=== PATIENT | female | born 1980 | race Caucasian/White ===

== ENCOUNTER → 2025-04-18 09:43 | Outpatient (REF) | payer BC, SELFPAY | LOC: PNTC 09:43 | PROVIDERS: ATTENDING PHYSICIAN Obstetrics & Gynecology | DX: Z36.0 Encounter for antenatal screening for chromosomal anomalies (principal); Z36.82 Encounter for antenatal screening for nuchal translucency | CPT/HCPCS: 76801; 76813 ==

== ENCOUNTER → 2025-05-18 11:16 | Outpatient (REF) | payer BC, SELFPAY | LOC: PNTC 11:16 | PROVIDERS: ATTENDING PHYSICIAN Obstetrics & Gynecology | DX: O09.529 Supervision of elderly multigravida, unspecified trimester (principal); O09.819 Supervision of pregnancy resulting from assisted reproductive technology, unspecified trimester; O34.219 Maternal care for unspecified type scar from previous cesarean delivery | CPT/HCPCS: 76805 ==

== ENCOUNTER → 2025-08-15 14:40 | Outpatient (REF) | payer BC, SELFPAY | LOC: PNTC 14:40 | PROVIDERS: ATTENDING PHYSICIAN Obstetrics & Gynecology | DX: Z34.90 Encounter for supervision of normal pregnancy, unspecified, unspecified trimester (principal) | CPT/HCPCS: 36415; 86850; 86900; 86901; 96372; J2790 ==

== ENCOUNTER → 2025-09-19 14:04 | Outpatient (REF) | payer BC, SELFPAY | LOC: PNTC 14:04 | PROVIDERS: ATTENDING PHYSICIAN Obstetrics & Gynecology | DX: O09.523 Supervision of elderly multigravida, third trimester (principal); O99.213 Obesity complicating pregnancy, third trimester; O09.813 Supervision of pregnancy resulting from assisted reproductive technology, third trimester | CPT/HCPCS: 59025; 76815 ==

== ENCOUNTER 2025-09-26 23:20 | Inpatient (IN) | payer BC, SELFPAY ==
[2025-09-26 16:18] VITALS: BP 185/93; BMI 33.7
[2025-09-26 16:45] LABS: Hematocrit 36.5 % (37.0-47.0); Hemoglobin 11.8 g/dL (12.0-16.0); Mean Corp Hgb Conc. 32.3 g/dL (33.0-37.0); Mean Corpuscular Volume 88.8 fL (81.0-99.0); Nucleated Red Blood Cells % 0 %; Platelet Count 186 10^3/uL (130-400); Red Cell Dist. Width 12.5 % (11.5-14.5)
[2025-09-26 17:02] LABS: ALT (SGPT) 15 U/L (0-35); AST (SGOT) 21 U/L (14-36); Albumin 3.4 g/dl (3.5-5.0); Alkaline Phosphatase 101 U/L (38-126); Blood Urea Nitrogen 9 mg/dl (7-17); Calcium 8.6 mg/dl (8.4-10.2); Carbon Dioxide 25 mmol/L (22-30); Chloride 103 mmol/L (98-107); Estimated Creatinine Clearance 110 ml/min; Glucose 65 mg/dl (70-99); Potassium 4.1 mmol/L (3.5-5.1); Sodium 131 mmol/L (135-145); Total Protein 6.3 g/dl (6.3-8.2); eGFR > 60.00
[2025-09-26] MEDS: ADALAT 10 MG PO (17:11)
[2025-09-26] MEDS: TYLENOL 975 MG PO (18:33)
[2025-09-26] MEDS: ANCEF 10 IV (18:33)
[2025-09-26] MEDS: BICITRA 30 ML PO (18:34)
[2025-09-26] MEDS: PITOCIN 30 UNITS/NSS 500 ML IV (19:14)
[2025-09-26] MEDS: LR 1000 IV ×2 (20:18→20:50)
[2025-09-26] MEDS: MAGNESIUM SULFATE 100 IV (20:18)
[2025-09-26] MEDS: MAGNESIUM SULFATE 40 GRAM 1000 IV (20:43)
[2025-09-26] MEDS: TRANDATE 20 MG IV (21:05)
[2025-09-26] MEDS: COLACE 100 MG PO (21:06)
[2025-09-27] MEDS: PITOCIN 30 UNITS/NSS 500 ML IV (00:48)
[2025-09-27] MEDS: TORADOL 15 MG IV ×4 (01:54→20:05)
[2025-09-27] MEDS: BENADRYL 25 MG IV (02:00)
[2025-09-27 06:30] LABS: Hematocrit 32.3 % (37.0-47.0); Hemoglobin 10.9 g/dL (12.0-16.0); Mean Corp Hgb Conc. 33.7 g/dL (33.0-37.0); Mean Corpuscular Volume 90.0 fL (81.0-99.0); Platelet Count 156 10^3/uL (130-400); Red Cell Dist. Width 12.4 % (11.5-14.5)
--- NOTE | 2025-09-27 07:49 | W.PN.ANS.POP ---
Anesthesia Post Operative
- Anesthesia Post Op Note
Vital Signs Stable-See Nursing Note: Yes
Airway Patent: Yes
Adequate Pain Control: Yes
Change in Mental Status: No
Current Postoperative Nausea & Vomiting: No
Anesthesia Complications: No
General Anesthetic Recall: No (n/a)
Unplanned Admission: No
Post Op Hydration Adequate: Yes
[2025-09-27] MEDS: COLACE 100 MG PO ×2 (08:06→19:43)
[2025-09-27] MEDS: TRANDATE 100 MG PO ×2 (08:08→13:43)
[2025-09-27] MEDS: RHOGAM 300 MCG IM (12:17)
[2025-09-27] MEDS: LR 1000 IV (12:41)
[2025-09-27] MEDS: MAGNESIUM SULFATE 40 GRAM 1000 IV (15:10)
[2025-09-27] MEDS: APRESOLINE 10 MG IV ×2 (19:42→20:24)
[2025-09-27] MEDS: TRANDATE 200 MG PO (20:06)
[2025-09-27] MEDS: MYLICON 80 MG PO (20:25)
[2025-09-27] MEDS: LR IV (21:45)
[2025-09-28] MEDS: MOTRIN 600 MG PO ×3 (02:32→15:10)
[2025-09-28] MEDS: TYLENOL 650 MG PO ×3 (02:33→18:15)
[2025-09-28] MEDS: MYLICON 80 MG PO ×2 (02:39→13:07)
[2025-09-28] MEDS: COLACE 100 MG PO ×2 (07:57→20:15)
[2025-09-28] MEDS: TRANDATE 200 MG PO ×2 (07:57→20:15)
[2025-09-28] MEDS: TRANDATE 100 MG PO ×2 (08:57→20:15)
--- NOTE | 2025-09-28 09:50 | CON.CAR ---
Addendum entered and electronically signed by Jose Reed MD 09/28/25 13:47:
I saw and examined the patient independently, and I performed majority of MDM.
The SUPERVISING LAW ENFORCEMENT ANALYST's note was reviewed and I agree with the note with changes/additions below.
Comment: 45 yo female with gestational hypertension is now admitted with pre-eclampsia. She denies CP. Exam with RRR, no respiratory distress, trace LE edema. EKG: NSR, nl EKG.
Continue labetalol 300mg bid. Add nifedipine ER 30mg daily. Target BP under 140/90.
Echo.
Original Note:
Consultation
Consultation Request
Date/Time Consultation Requested: 09/28/25836
Date/Time Consultation Performed: 09/28/25919
Requesting Provider: Dr. David Thompson
Performing Provider: Pricilla OKEEFE for Dr. Reed
Reason for Consultation: assistance with BP management
Medical History
-
Chief Complaint:
History of Present Illness:
45 y/o female with no known PMH who is s/p 09/26/25 at 35 weeks and 4 days due to severe gestational hypertension. We are consulted to assist with BP management. She has no CP, SOB, or ALEJANDRE's. Her pain is controlled. This is her 3rd child.
She reports no issues with previous pregnancies.
Past Medical History
Past Medical History: None
Social History
Tobacco: Non-Smoker
Alcohol: None
Drug: None
Living: With Family
Family History
Family History: Hypertension (mom and grandmom)
Allergies / Home Medications
Allergy/AdvReac Type Severity Reaction Status Date / Time
seasonal Allergy Unknown Uncoded 09/26/25 16:15
�Medication �Instructions �Recorded �Confirmed �Type
Vitamin 1 tab PO DAILY Supplement 10/06/23 09/26/25 History
aspirin 81 mg chewable tablet 81 mg PO DAILY 09/26/25 09/26/25 History
prenat.vits,jing,ipa-mbru-dyasy 1 tab PO DAILY 09/26/25 09/26/25 History
Review of Systems
-
History Source: Patient
All other systems: Negative unless noted (no CP, SOB, or ALEJANDRE)
Physical Exam
Vital Signs
Temp Pulse Resp BP
97.9 F 93 18 151/83
09/26/25 16:18 09/27/25 20:06 09/26/25 16:18 09/28/25 07:57
Lab Results
09/27/25 06:15
09/26/25 16:31
Physical Exam
General: Well Developed, Well Nourished and No Apparent Distress
HEENT: Normocephalic and Anicteric
Respiratory: Clear and Non Labored Respirations
Cardiac: Regular Rhythm
Musculoskeletal: No Edema
Skin: Warm and Dry
Neuro: AO x 3
Psych: Calm
Impression / Plan
-
Severe gestational hypertension:
-s/p 09/26/25: management per OB-LUBRICATING SPECIALIST team. Pain controlled per patient.
-BP was as high as 180's/90's this admit, now 150's/80's. Goal <140/90. She denies any CP, SOB, or ALEJANDRE. Regarding BP management: continue labetalol. Add nifedipine. Monitor BP and HR.
-EKG stable in NSR in 70's this AM, will obtain echo
Data Reviewed
-
EKG: Tracing Personally Visualized and interpreted (NSR 74 BPM)
Medical Tests (Nuc Med, Echo etc): Other (echo ordered)
Labs: Labs Reviewed by me
[2025-09-28] MEDS: PROCARDIA XL (EXTENDED RELEASE) 30 MG PO (13:00)
[2025-09-29] MEDS: MOTRIN 600 MG PO ×3 (05:35→21:35)
[2025-09-29] MEDS: TYLENOL 650 MG PO ×3 (05:35→19:35)
[2025-09-29] MEDS: MYLICON 80 MG PO ×2 (05:40→12:49)
[2025-09-29] MEDS: APRESOLINE 10 MG IV (06:07)
[2025-09-29] MEDS: PROCARDIA XL (EXTENDED RELEASE) 30 MG PO (07:54)
[2025-09-29] MEDS: COLACE 100 MG PO ×2 (07:54→19:35)
[2025-09-29] MEDS: TRANDATE 100 MG PO (07:54)
[2025-09-29] MEDS: TRANDATE 200 MG PO (07:55)
--- NOTE | 2025-09-29 10:17 | W.PN.CD ---
Today's Communication / Plan
-
continue labetalol 300mg bid, nifedipine ER 30mg daily
Impression / Plan
-
Severe gestational hypertension: Now with pre-eclampsia, improving
-s/p 09/26/25: management per OB-ELECTROMECHANICAL INSPECTOR team.
-goal BP under 140/90; BP after meds 130s/60s
-echo and EKG normal
-continue labetalol 300mg bid, nifedipine ER 30mg daily
Dispo
-follow up in chart
Physical Exam
Vital Signs/Labs
Vital Signs
Temp Pulse Resp BP
97.9 F 72 18 174/86
09/26/25 16:18 09/29/25 06:07 09/26/25 16:18 09/29/25 07:55
09/27/25 06:15
09/26/25 16:31
Physical Exam
Constitutional: No acute distress and Comfortable
EENT: Moist mucous membranes
Cardiovascular: Rhythm & rate is regular, JVD pressure is normal, Systolic murmur absent and Pedal edema present (trace)
Respiratory: Respiratory effort normal and Lungs clear to auscul.
Neuro/Psych: AO x 3
Data Reviewed
-
Date of Service: September 29, 2025
EKG: Report Reviewed by me
Echo: Report Reviewed by me
[2025-09-29 11:43] LABS: Syphilis/T. pallidum Ab Reflex Negative (Negative)
--- NOTE | 2025-09-29 14:55 | W.PN.UPDATE ---
Update Note
Progress Note Update
BP trended back up. increase labetalol to 300mg tid
[2025-09-29] MEDS: TRANDATE 300 MG PO ×2 (15:01→21:35)
[2025-09-29] MEDS: ADALAT 10 MG PO (22:43)
[2025-09-30] MEDS: PROCARDIA XL (EXTENDED RELEASE) 30 MG PO ×3 (05:55→20:05)
[2025-09-30] MEDS: MOTRIN 600 MG PO ×3 (05:55→23:25)
[2025-09-30] MEDS: TRANDATE 300 MG PO ×3 (05:56→22:04)
[2025-09-30] MEDS: COLACE 100 MG PO ×2 (12:26→20:02)
--- NOTE | 2025-09-30 12:42 | W.PN.CD ---
Today's Communication / Plan
-
Treatment plan as outlined above with increase in Procardia XL today
Impression / Plan
-
Severe gestational hypertension: Now with pre-eclampsia, improving
-s/p 09/26/25: management per OB-HAND STAPLER team.
- Patiently currently on labetalol 300 mg 3 times daily and nifedipine ER 30 mg a day. Despite the above patient had significant hypertension overnight and received additional short acting Procardia 10 mg x 1. Despite getting morning medications
blood pressure remains elevated at 148/96. Patient is currently asymptomatic and appears well. Reviewed with . Patient will receive Procardia XL 30 mg now and then we will change her dosing to Procardia XL 30 mg twice daily starting
tomorrow. Dr. Garcia will monitor the patient this afternoon and assess response to treatment.
-follow up in chart
Physical Exam
Vital Signs/Labs
Vital Signs
Temp Pulse Resp BP
97.9 F 95 18 149/96
09/26/25 16:18 09/30/25 12:23 09/26/25 16:18 09/30/25 12:23
09/27/25 06:15
09/26/25 16:31
Physical Exam
Constitutional: No acute distress
Cardiovascular: Rhythm & rate is regular
Respiratory: Respiratory effort normal
GI: Non tender
Neuro/Psych: Alert and Oriented
Data Reviewed
-
Date of Service: September 30, 2025
Medical Decision Making: Reviewed Test Results
Medical Tests (PFT, Pathology etc): Report Reviewed by me and Discussed with Physician (Discussed with OB)
Labs: Labs Reviewed by me
[2025-09-30] MEDS: TYLENOL 650 MG PO (23:24)
[2025-10-01] MEDS: ADALAT 10 MG PO (06:11)
[2025-10-01] MEDS: COLACE 100 MG PO ×2 (07:38→07:40)
[2025-10-01] MEDS: PROCARDIA XL (EXTENDED RELEASE) 30 MG PO (07:38)
[2025-10-01] MEDS: TRANDATE 300 MG PO ×2 (07:39→16:14)
[2025-10-01] MEDS: MOTRIN 600 MG PO (12:04)
[2025-10-01] MEDS: TYLENOL 650 MG PO (12:04)
--- NOTE | 2025-10-01 14:19 | W.PN.CD ---
Today's Communication / Plan
-
Issues as outlined above issues discussed directly with Dr. Garcia
Impression / Plan
-
Severe gestational hypertension: Now with pre-eclampsia, improving
-s/p 09/26/25: management per OB-LATEX RIBB[employer] MACHINE OPERATOR team.
- Patiently currently on labetalol 300 mg 3 times daily and nifedipine ER 30 mg twice day. Asymptomatic. Patient still periodically has some post discomfort which may also add to fluctuations in blood pressure. Most recent blood
pressure 130/88. Would continue to monitor blood pressures on current medical therapy. If patient requires further increases in medication then I would titrate the Procardia. I also explained to the patient the importance of monitoring blood
pressures at home. Even when her blood pressures appear to be stable on medical therapy her blood pressures will need to be monitored since her her requirements for antihypertensive medication are likely to decline in the future and she will
ultimately require reductions in her medical therapy.
Physical Exam
Vital Signs/Labs
Vital Signs
Temp Pulse Resp BP
97.9 F 86 18 151/91
09/26/25 16:18 10/01/25 07:39 09/26/25 16:18 10/01/25 07:39
09/27/25 06:15
09/26/25 16:31
Physical Exam
Constitutional: No acute distress
Cardiovascular: Rhythm & rate is regular
Respiratory: Wheeze Absent
GI: Soft
Neuro/Psych: Alert
Data Reviewed
-
Date of Service: October 01, 2025
Medical Decision Making: Reviewed Test Results
Medical Tests (PFT, Pathology etc): Report Reviewed by me
Labs: Labs Reviewed by me
--- NOTE | 2025-10-01 16:05 | W.DS.TRANS ---
DC Summary - Internal Controls Analyst
-
Discharge Instructions:
Discharge Diagnosis/Procedures rcs, severe gestational hypertension
Diet Regular
Activity No strenuous activity
Driving Restrictions No driving for 2 weeks
Bathing Restrictions OK to Shower
Instructions:
Stand-Alone Forms: LDRP Delivery
LDRP Hypertensive Disorders
Changes to Home Medications: No
Discharge Medications:
DC Medications w/original date entered in [email or web address]
Vitamin 1 tab PO DAILY Supplement 10/06/23
acetaminophen 325 mg tablet 650 mg (2 x 325 mg) PO Q4HPRN PRN mild pain #0 tabs 09/30/25
ibuprofen 600 mg tablet 600 mg PO Q6HPRN PRN cramps #0 tabs 09/30/25
labetalol 200 mg tablet 300 mg (1.5 x 200 mg) PO TID #135 tabs 09/30/25
nifedipine 30 mg tablet,extended release 30 mg PO BID #60 tabs 09/30/25
nifedipine 10 mg capsule 10 mg PO PRN PRN 1 TAB POwhen directed by physician for severe BP #10 caps 10/01/25
Home Medication Changes
Pending Results: Yes (placental pathology)
Total time spent discharging patient (in min): 30
== END 2025-10-01 17:49 | disposition home or self-care (01) | DRG 788 ==
LOC: LDRP 23:20
PROVIDERS: ADMITTING PHYSICIAN Obstetrics & Gynecology; ATTENDING PHYSICIAN Obstetrics & Gynecology; CONSULT PHYSICIAN Internal Medicine
PROC: 10D00Z1 Extraction of Products of Conception, Low, Open Approach (ICD-10-PCS; 2025-09-26)
DX: O34.211 Maternal care for low transverse scar from previous cesarean delivery (principal); N85.8 Other specified noninflammatory disorders of uterus; Z3A.35 35 weeks gestation of pregnancy; Z37.0 Single live birth; O69.81X0 Labor and delivery complicated by cord around neck, without compression, not applicable or unspecified; O14.14 Severe pre-eclampsia complicating childbirth
CPT/HCPCS: 59025; 76815; 80053; 82570; 84156; 85025; 85027; 85461; 86780; 86850; 86870; 86900; 86901; 87070; 88307; 93005; 93306; J2790